=== PATIENT | female | born 1960 | race African-American/Black ===

== ENCOUNTER → 2019-06-21 11:03 | Outpatient (CLI) | payer OTHER, SELFPAY ==
--- NOTE | 2019-06-21 | DI.RAD.S_ITS ---
PROCEDURE: XR CERVICAL SPINE 2V OR 3V INDICATIONS: NECK PAIN TECHNIQUE: 3 view(s) of the cervical spine were acquired. COMPARISON: None. FINDINGS: Bones: No fractures or dislocations to the C7 level. Straightening of cervical curvature. The lateral masses of C1 appear intact on the odontoid view. No suspicious bony lesions. There is degenerative disc disease in cervical spine, moderate at C5-C6 and mild at C4-C5 and C6-C7. Soft tissues: No prevertebral soft tissue swelling. IMPRESSION: Mild/moderate degenerative disc disease in cervical spine. Dictated by: Kelby Pham M.D. on 06/21/2019 at 17:33 Approved by: Kelby Pham M.D. on 06/21/2019 at 17:34
== END ==
PROVIDERS: Visit Provider Chiropractor
DX: M50.321 Other cervical disc degeneration at C4-C5 level (principal)
CPT/HCPCS: 72040